=== PATIENT | female | born 2000 | race Caucasian/White ===

== ENCOUNTER 2019-08-09 16:26 | Emergency (ER) | payer OTHER, MEDICAID, SELFPAY ==
--- NOTE | ~2019-08-09 | XR_ITS ---
XR cervical spine 4-5V INDICATION: Neck pain TECHNIQUE: 4 views of the cervical spine. FINDINGS: No prior studies for comparison. The cervical spine is visualized to the cervicothoracic junction. There is no prevertebral soft tiss ue swelling, listhesis, or loss of vertebral body height. Intervertebral disc spaces are normal. Th e osseous central canal is patent. No displaced cervical spine fractures are identified. IMPRESSION: 1. No acute osseous abnormality of the cervical spine. Reviewed, dictated and finalized at location A. STIGATIONS MANAGER
--- NOTE | ~2019-08-09 | XR_ITS ---
XR hand LT min 3V 08/09/2019 17:20 INDICATION: Left hand pain after punching wall PROCEDURE: 3 views left hand COMPARISON: No prior studies for comparison. FINDINGS: Fracture, dislocation or subluxation is not identified. The soft tissues appear within norm al limits. No foreign bodies are identified. IMPRESSION: 1: NO ACUTE BONE OR JOINT ABNORMALITY IDENTIFIED. Reviewed, dictated and finalized at location A. [employer]OR SURGICAL
[2019-08-09 16:41] VITALS: BP 120/72; PULSE 92; RESP 18; TEMP 36.2; O2SAT 100
--- NOTE | 2019-08-09 16:52 | ED.GENADULT ---
HPI - General Adult General Chief complaint: Extremity Injury, Upper Stated complaint: Neck pain,numbness in hand Time Seen by Provider: 08/09/19 16:53 Source: patient and RN notes reviewed Mode of arrival: ambulatory Limitations: no limitations History of Present Illness HPI narrative: 19 year old female who presents to [facility] with complaint of left neck pain for 1.5 months duration which radiates down posterior aspect of left shoulder with pain stated today to be a 10/10. 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 Patient states that about a week and a half ago, she hit a concrete wall because she was upset and has pain to the left hand. She states that she was seen by her psychiatrist in [place] and was put on Zoloft one month ago does not think it is working, denies any suicidal or homicidal tendencies. MD complaint: neck pain and pain left hand Onset (ago): week(s) (1.5 months neck pain left, 1.5 week left hand pain) Location: neck, left and upper extremity (hand) Radiation: other (states left neck pain radiates to shoulder) Severity: severe Severity scale (1-10): 10 Quality: aching and sharp Pain Consistency: constant Relieving factors: none Exacerbating factors: movement Associated symptoms: denies other symptoms Treatments prior to arrival: none Related Data Home Medications Medication Instructions Recorded Confirmed buspirone 10 mg PO DAILY 08/09/19 08/09/19 sertraline [Zoloft] 100 mg PO DAILY 08/09/19 08/09/19 trazodone 150 mg PO HS 08/09/19 08/09/19 Allergies Allergy/AdvReac Type Severity Reaction Status Date / Time No Known Allergies Allergy Verified 08/09/19 16:47 Review of Systems Review of Systems: Narrative: CONSTITUTIONAL: Denies fever, chills, or sweats. EYES: Denies visual changes, redness, or discharge. ENT: Denies rhinorrhea, congestion, sore throat, or otalgia. CARDIOVASCULAR: Denies chest pain, palpitations, or edema. RESPIRATORY: Denies cough or dyspnea. GASTROINTESTINAL: Denies abdominal pain, nausea, vomiting, or diarrhea. GENITOURINARY: Denies dysuria or hematuria. SKIN: Denies rash or itching. MUSCULOSKELETAL: Denies back pain,voices neck and left posterior shoulder pain, pain to left hand or myalgia. NEUROLOGIC: Denies headache, numbness, or weakness. PSYCHIATRIC: Positive anxiety or depression. All systems reviewed & are unremarkable except as noted in HPI and below PMFSH Past Medical History Medical History (Updated 08/15/19 @ 20:49 by Melissa Valdivia NP) Anxiety and depression Difficulty sleeping Social History Social History (Updated 08/15/19 @ 20:47 by Melissa Valdivia NP) Smoking status: Unknown if ever smoked Living arrangements: with family Gender identity (if verbalized by the patient): Female Comments At time of signature, agree with nursing past medical, social history. There is no relevant family history pertinent to the presenting complaint Exam Narrative: Exam Narrative: GENERAL: Well-appearing, well-nourished, and in no acute distress. HEAD: Normocephalic, atraumatic. EYES: PERRLA and EOMI. ENT: Nares clear, no rhinorrhea or epistaxis. Mucous membranes moist. NECK: Supple.no lymphadenopathy, able to move neck in all directions CHEST: Clear to auscultation. No respiratory distress. HEART: Regular rate and rhythm. No murmur heard. Normal peripheral pulses. ABDOMEN: Soft, nontender, nondistended, normal active bowel sounds. EXTREMITIES: Normal range of motion. No edema. pain to left neck with radiation to shoulder, strong pulses to left arm, no edema to left hand, bruising or noted deformity, nail beds parviz briskly strong left radial pulse hand warm to touch. SKIN: Warm, dry, no rash. NEURO: No focal deficits. Alert and oriented x3. Course Vital Signs Vital signs: Vital Signs Temperature 36.2 C L 08/09/19 16:41 Pulse Rate 92 08/09/19 16:41 Respirat
== END 2019-08-09 17:58 | disposition home or self-care (01) ==
PROVIDERS: Emergency Provider Registered Nurse
DX: S16.1XXA Strain of muscle, fascia and tendon at neck level, initial encounter (principal); X58.XXXA Exposure to other specified factors, initial encounter; M79.642 Pain in left hand; F41.9 Anxiety disorder, unspecified; F32.9 Major depressive disorder, single episode, unspecified
CPT/HCPCS: 72050; 73130; 99204; G0463

== ENCOUNTER 2019-09-08 12:48 | Emergency (ER) | payer BC, MEDICAID, SELFPAY ==
[2019-09-08 13:12] VITALS: BP 129/70; PULSE 86; RESP 16; TEMP 36.2; O2SAT 100
--- NOTE | 2019-09-08 13:21 | ED.NAVMDI ---
HPI - Nausea/Vomiting/Diarrhea General Chief complaint: Nausea/Vomiting/Diarrhea Stated complaint: Abd pain/Nausea/Vomiting Time Seen by Provider: 09/08/19 13:25 Source: patient and RN notes reviewed Mode of arrival: ambulatory Limitations: no limitations History of Present Illness HPI Narrative: 19-year-old female presents with concern for nausea, vomiting, diarrhea yesterday. She reports symptoms started yesterday and ended yesterday. She reports approximately 4 episodes of diarrhea and 4 episodes of vomiting. She denies any abdominal tenderness, fever, malaise, body aches, cough, rhinorrhea, nasal congestion, headache. Denies taking any medications for her symptoms. MD elicited complaint: vomiting Related Data Home Medications Medication Instructions Recorded Confirmed trazodone 150 mg PO HS 08/09/19 09/08/19 buspirone 15 mg PO TID 09/08/19 09/08/19 Allergies Allergy/AdvReac Type Severity Reaction Status Date / Time Sulfa (Sulfonamide Allergy Unknown Verified 09/08/19 13:10 Antibiotics) Review of Systems Review of Systems: Narrative: CONSTITUTIONAL: Denies malaise, chills, sweats, or fever. EYES: Denies visual changes, redness, or discharge. ENT: Denies rhinorrhea, congestion, sinus pain, otalgia or sore throat. CARDIOVASCULAR: Denies chest pain, palpitations, or edema. RESPIRATORY: Denies cough or dyspnea. GASTROINTESTINAL: Denies current abdominal pain, nausea, vomiting, diarrhea, bloody, or mucous stools. GENITOURINARY: Denies dysuria or hematuria. SKIN: Denies rash or itching. MUSCULOSKELETAL: Denies back pain, joint pain, or myalgia. NEUROLOGIC: Denies numbness, weakness, or headache. PSYCHIATRIC: Denies anxiety or depression. All systems reviewed & are unremarkable except as noted in HPI and below PMFSH Past Medical History Medical History (Updated 09/08/19 @ 13:39 by Humaira Strong NP) Anxiety and depression Difficulty sleeping Social History Social History (Updated 08/15/19 @ 20:47 by Melissa Valdivia NP) Smoking status: Unknown if ever smoked Gender identity (if verbalized by the patient): Female Comments At time of signature, agree with nursing past medical, surgical, social and family history. There is no relevant family history pertinent to the presenting complaint Exam Narrative: Exam Narrative: GENERAL: Well-appearing, well-nourished, and in no acute distress. HEAD: Normocephalic. EYES: PERRLA, conjunctivae clear. NECK: Supple. No lymphadenopathy CHEST: Clear to auscultation. No respiratory distress. HEART: Regular rate and rhythm. No murmur heard. Normal peripheral pulses. ABDOMEN: Soft, nontender upon palpation, nondistended, normal active bowel sounds, no palpable or pulsatile masses, no guarding. SKIN: Warm, dry, no rash. NEURO: Alert and oriented x3. PSYCH: Normal mood and affect Course Course Emergency Course: Patient is aware of diagnosis, understands and agrees to treatment plan. Anticipatory guidance given. Patient agrees to follow-up as directed and is aware of reasons to seek care at the emergency department. Portions of this record may have been created with voice recognition software Vital Signs Vital signs: Vital Signs Temperature 97.2 F L 09/08/19 13:12 Pulse Rate 86 09/08/19 13:12 Respiratory Rate 16 09/08/19 13:12 Blood Pressure 129/70 09/08/19 13:12 Pulse Oximetry 100 09/08/19 13:12 Temperature 97.2 F L 09/08/19 13:12 Pulse Rate 86 09/08/19 13:12 Respiratory Rate 16 09/08/19 13:12 Blood Pressure 129/70 09/08/19 13:12 Pulse Oximetry 100 09/08/19 13:12 Reviewed. MDM - Nausea/Vomiting/Diarrhea MDM Narrative Medical decision making narrative: No evidence of pancreatitis, AAA, cholecystitis, choledocholithiasis, cholangitis, mesenteric ischemia, small bowel obstruction, diverticulitis, colitis, appendicitis, or pelvic etiology such as ovarian torsion, TOA, or ectopic . Patient has no history of peptic ul
== END 2019-09-08 13:41 | disposition home or self-care (01) ==
PROVIDERS: Emergency Provider Nurse Practitioner; PCP Family Medicine
DX: R11.2 Nausea with vomiting, unspecified (principal); R19.7 Diarrhea, unspecified; F41.9 Anxiety disorder, unspecified; F32.9 Major depressive disorder, single episode, unspecified
CPT/HCPCS: 99211; G0463